=== PATIENT | male | born 1990 | race Caucasian/White ===

== ENCOUNTER 2021-05-19 15:11 | Emergency (ER) | payer OTHER ==
[~2021-05-19] VITALS: Ht 190.5 cm; Wt 113.4 kg
[2021-05-19] MEDS ORDERED: HYDROCODON-ACE1 EAC7 PO (16:00)
[2021-05-19] MEDS ORDERED: MEDROLDOSEPACK PO (16:00)
[2021-05-19 16:14] VITALS: BP 179/90
== END 2021-05-19 16:15 | disposition home or self-care (01) ==
LOC: M.ERS 15:11
DX: M54.31 Sciatica, right side (principal); Z88.5 Allergy status to narcotic agent